=== PATIENT | female | born 1965 | race Caucasian/White ===

== ENCOUNTER → 2017-03-21 | Outpatient (CLI) | payer OTHER | LOC: FIMAGING 12:14 | PROVIDERS: ATTEND Internal Medicine | DX: Z12.31 Encounter for screening mammogram for malignant neoplasm of breast (principal) | CPT/HCPCS: G0202 ==

== ENCOUNTER → 2018-05-08 | Outpatient (CLI) | payer OTHER | LOC: BMCIMAGING 15:07 | PROVIDERS: ATTEND Family Medicine | DX: Z12.31 Encounter for screening mammogram for malignant neoplasm of breast (principal) ==

== ENCOUNTER → 2018-05-15 | Outpatient (CLI) | payer OTHER | LOC: BMCIMAGING 09:54 | PROVIDERS: ATTEND Family Medicine | DX: R92.8 Other abnormal and inconclusive findings on diagnostic imaging of breast (principal) ==

== ENCOUNTER 2018-07-08 15:57 | Observation (INO) | payer OTHER ==
[2018-07-08] MEDS ORDERED: NS 1,000 ML IV ONE (16:35)
--- NOTE | 2018-07-08 16:36 | EDPHY ---
HPI/HX/ROS/PE/MDM Narrative: CHIEF COMPLAINT: "I've been feeling really yucky today" HISTORY OF PRESENT ILLNESS: The patient is a 52 y/o female with a history of anxiety and ocular migraines arriving with her complaining of left arm and leg "tightness" and neck pain onset today as well as fatigue over the last 3 -4 days. Today she says her "left arm and leg are really tight and tense. My neck is tense. I'm nauseous and so tired." She describes the discomfort in her limbs as painful and "almost numb, almost tingling" but not a [id number]-[id number] sensation. Her arm pain extends from her shoulder down the ulnar aspect of her forearm into her wrist. Her leg pain extends into her calf and is not associated with swelling. She took Advil for pain this morning and later lorazepam with some improvement. She mentions she had a few ocular migraines over the last few weeks, most recently 2 days ago. She spoke with her PCP and was advised to wear her prescription glasses. She describes typical "kaleidoscope" visual symptoms lasting 15-20 minutes without a headache, speech difficulty, diplopia, weakness, or paresthesias. She has experienced neck pain recently and saw a massage therapist a few days ago for this. She denies any chiropractic manipulations. She did get a flu vaccination this season. No history of diabetes, hypertension, hypercholesterolemia, paresthesias. No fever, chills, chest pain, shortness of breath, palpitations, vomiting, diarrhea, urinary complaints, headache, lightheadedness, balance problems, recent trauma, recent illness, leg swelling. REVIEW OF SYSTEMS: Aside from elements discussed in the HPI, a comprehensive 10-point review of systems was reviewed and is negative. PAST MEDICAL HISTORY: Anxiety; ocular migraines SOCIAL HISTORY: Nonsmoker, no marijuana use, no illicit drug use, occasional alcohol use. at bedside. VITAL SIGNS: Reviewed by me GENERAL: Well-developed, well-nourished, resting comfortably in no respiratory distress. HEENT: Atraumatic. Eyes: No icterus, no injection. Mouth: moist mucous membranes. No erythema or lesions. Neck: supple with no adenopathy. Bilateral mild paraspinous tenderness. LUNGS: Clear to auscultation bilaterally, no wheezes, rhonchi or rales. CARDIAC: Regular rate and rhythm, no rubs, murmurs or gallops. ABDOMEN: Soft, nontender, nondistended, bowel sounds normal. BACK: No CVA tenderness. EXTREMITIES: No trauma. No edema. Range of motion is normal throughout. NEURO: Alert and oriented, grossly nonfocal. Normal sxfvdr-[id number]-pbig and heel-to -butts bilaterally. Nonfocal cranial nerves. SKIN: Warm and dry, no rash. PSYCHIATRIC: Normal mentation, no agitation. Portions of this note were transcribed by a medical registrar. I personally performed a history, physical exam, medical decision making, and confirmed accuracy of information the transcribed note. ED Course: This is a 52 y/o female who presents with vague left arm, left leg, and neck "tightness" onset this morning and fatigue over the last 3-4 days. She does report recent ocular migraine symptoms as well, but not today. She has a completely normal neurologic exam. She is afebrile. IV established. Labs drawn. EKG ordered. 1L IV NS administered. The 12 lead EKG was interpreted by myself. Sinus mechanism, borderline T wave abnormalities with diffuse flattening new from EKG in 2013. See hard copy and/ or "tracemaster" electronic copy for interpretation. POC troponin 0.00. 1810: Reassessed patient. She is feeling much worse now and has developed chest pain radiating into her left arm. She is quite anxious and worried about going home. She tells me she had a stress test and possibly echocardiogram a few years ago for chest pain that was normal. Plan for repeat EKG and likely admission. Chest x-ray ordered. 324mg PO aspirin and 1mg IV Lorazepam ordered. Chest x-ray: negative, no widening of the mediastinum. The 12 lead EKG was interpreted by myself. Sinus mechanism, T waves are now inverted in III, V3, V4, V5, V6. Mild ST depression V4 and aTF. See hard copy and/or "tracemaster" electronic copy for interpretation. Spoke with hospitalist service. Dr. Mae accepts admission. Repeated POC troponin is 0.00. MDM: After history and physical examination, the differential for patient presenting complaints was considered, including but not limited to, myocardial ischemia, acute coronary syndrome, pulmonary embolus, neurologic causes, electrolyte abnormalities, anxiety, pleural inflammation and pulmonary infectious causes. - Data Points Imaging Results: Imaging Impressions Chest X-Ray 07/08/18 18:20 Impression: Normal. Imaging: I viewed and interpreted images myself Laboratory Results: Laboratory Results 07/08/18 16:37 07/08/18 16:37 07/08/18 07/08/18 07/08/18 16:43 16:37 16:37 WBC RBC Hgb Hct MCV MCH MCHC RDW Plt Count MPV Neut % (Auto) Lymph % (Auto) Simpson % (Auto) Eos % (Auto) Baso % (Auto) Nucleat RBC Rel Count Absolute Neuts (auto) Absolute Lymphs (auto) Absolute Monos (auto) Absolute Eos (auto) Absolute Basos (auto) Absolute Nucleated RBC Immature Gran % Immature Gran # D-Dimer < 0.27 ug/mLFEU ug/mLFEU (0.00-0.50) Sodium 133 mEq/L L mEq/L (135-145) Potassium 3.9 mEq/L mEq/L (3.5-5.2) Chloride 102 mEq/L mEq/L (97-110) Carbon Dioxide 22 mEq/l mEq/l (22-31) Anion Gap 9 mEq/L mEq/L (6-14) BUN 12 mg/dL mg/dL (7-23) Creatinine 0.7 mg/dL mg/dL (0.6-1.0) Estimated GFR > 60 Glucose 107 mg/dL H mg/dL (70-100) Calcium 8.9 mg/dL mg/dL (8.5-10.4) Total Bilirubin 0.4 mg/dL mg/dL (0.1-1.4) Conjugated Bilirubin 0.1 mg/dL mg/dL (0.0-0.5) Unconjugated Bilirubin 0.3 mg/dL mg/dL (0.0-1.1) AST 20 IU/L IU/L (14-46) ALT 29 IU/L IU/L (9-52) Alkaline Phosphatase 80 IU/L IU/L (38-126) POC Troponin I Total Protein 6.8 g/dL g/dL (6.3-8.2) Albumin 3.9 g/dL g/dL (3.5-5.0) Urine Color PALE YELLOW Urine Appearance CLEAR Urine pH 5.0 (5.0-7.5) Ur Specific Beeler 1.010 (1.002-1.030) Urine Protein NEGATIVE (NEGATIVE) Urine Ketones NEGATIVE (NEGATIVE) Urine Blood 2+ H (NEGATIVE) Urine Nitrate NEGATIVE (NEGATIVE) Urine Bilirubin NEGATIVE (NEGATIVE) Urine Urobilinogen NEGATIVE EU EU (0.2-1.0) Ur Leukocyte Esterase NEGATIVE (NEGATIVE) Urine RBC 1-3 /hpf /hpf (0-3) Urine WBC 0-1 /hpf /hpf (0-3) Ur Epithelial Cells TRACE /lpf /lpf (NONE-1+) Urine Bacteria 1+ /hpf H /hpf (NONE SEEN) Urine Mucus TRACE /lpf /lpf (NONE-1+) Urine Glucose NEGATIVE (NEGATIVE) 07/08/18 07/08/18 16:37 16:26 WBC 7.16 10^3/uL 10^3/uL (3.80-9.50) RBC 4.02 10^6/uL L 10^6/uL (4.18-5.33) Hgb 12.9 g/dL g/dL (12.6-16.3) Hct 36.7 % L % (38.0-47.0) MCV 91.3 fL fL (81.5-99.8) MCH 32.1 pg pg (27.9-34.1) MCHC 35.1 g/dL g/dL (32.4-36.7) RDW 13.1 % % (11.5-15.2) Plt Count 247 10^3/uL 10^3/uL (150-400) MPV 10.2 fL fL (8.7-11.7) Neut % (Auto) 71.1 % % (39.3-74.2) Lymph % (Auto) 19.8 % % (15.0-45.0) Simpson % (Auto) 7.5 % % (4.5-13.0) Eos % (Auto) 0.7 % % (0.6-7.6) Baso % (Auto) 0.8 % % (0.3-1.7) Nucleat RBC Rel Count 0.0 % % (0.0-0.2) Absolute Neuts (auto) 5.08 10^3/uL 10^3/uL (1.70-6.50) Absolute Lymphs (auto) 1.42 10^3/uL 10^3/uL (1.00-3.00) Absolute Monos (auto) 0.54 10^3/uL 10^3/uL (0.30-0.80) Absolute Eos (auto) 0.05 10^3/uL 10^3/uL (0.03-0.40) Absolute Basos (auto) 0.06 10^3/uL 10^3/uL (0.02-0.10) Absolute Nucleated RBC 0.00 10^3/uL 10^3/uL (0-0.01) Immature Gran % 0.1 % % (0.0-1.1) Immature Gran # 0.01 10^3/uL 10^3/uL (0.00-0.10) D-Dimer Sodium Potassium Chloride Carbon Dioxide Anion Gap BUN Creatinine Estimated GFR Glucose Calcium Total Bilirubin Conjugated Bilirubin Unconjugated Bilirubin AST ALT Alkaline Phosphatase POC Troponin I 0.00 ng/mL ng/mL (0.00-0.08) Total Protein Albumin Urine Color Urine Appearance Urine pH Ur Specific Beeler Urine Protein Urine Ketones Urine Blood Urine Nitrate Urine Bilirubin Urine Urobilinogen Ur Leukocyte Esterase Urine RBC Urine WBC Ur Epithelial Cells Urine Bacteria Urine Mucus Urine Glucose Medications Given: Discontinued Medications Aspirin (Aspirin) 324 mg PO EDNOW ONE Stop: 07/08/18 18:21 Last Admin: 07/08/18 18:44 Dose: 324 mg Sodium Chloride (Ns) 1,000 mls @ 0 mls/hr IV ONCE ONE; Wide Open PRN Reason: Protocol Stop: 07/08/18 16:36 Last Admin: 07/08/18 16:44 Dose: 1,000 mls Lorazepam (Ativan Injection) 1 mg IVP EDNOW ONE Stop: 07/08/18 18:21 Last Admin: 18 18:48 Dose: 1 mg Point of Care Test Results: Chemistry 07/08/18 16:26 POC Troponin I 0.00 ng/mL ng/mL (0.00-0.08) General Time Seen by Provider: 07/08/18 16:11 Initial Vital Signs: Initial Vital Signs Temperature (C) 36.7 C 07/08/18 15:59 Heart Rate 76 07/08/18 15:59 Respiratory Rate 16 07/08/18 15:59 Blood Pressure 139/75 H 07/08/18 15:59 O2 Sat (%) 97 07/08/18 15:59 O2 Delivery Mode Room Air Allergies/Adverse Reactions: codeine Allergy (Verified 07/08/18 15:58) Home Medications: Medication Instructions Recorded NK [No Known Home Meds] 07/08/18 Departure - Departure Disposition: [facility] Inpatient Acute Clinical Impression: Left arm pain, Left leg pain, Abnormal EKG Chest pain Qualifiers: Chest pain type: other chest pain Qualified Code(s): R07.89 - Other chest pain Condition: Good Report Scribed for: Janiya Markham Report Scribed by: Liliane Coleman Date of Report: 07/08/18 Time of Report: 16:36
[2018-07-08 16:46] LABS: PLATELET COUNT 247 10^3/uL (150-400)
[2018-07-08] MEDS ORDERED: LORazepam 2 MG/ML INJ IVP ONE (18:20)
[2018-07-08] MEDS ORDERED: ASPIRIN 81 MG CHEWABLE TAB PO ONE (18:20)
[2018-07-08] MEDS ORDERED: ONDANSETRON 4 MG/2 ML VIAL IVP PRN (20:07)
[2018-07-08] MEDS ORDERED: ACETAMINOPHEN 325 MG TAB PO PRN (20:07)
--- NOTE | 2018-07-08 20:52 | GHP ---
DATE OF ADMISSION: 07/08/2018 CHIEF COMPLAINT: Chest pain. HISTORY: The patient is a 52-year-old female, who developed left arm and left leg tightness at about 1 o'clock this afternoon. She did not feel great and was very fatigued when she woke up today with some nausea. Then she developed this significant left arm tightness that started in her arm but then radiated into her chest, and she is now having chest tightness 3/10. The chest tightness comes and goes in waves. There is also some neck tightness. It is nonpleuritic and she denies any shortness o f breath. In the emergency room, her 1st EKG was relatively unremarkable, but she had an episode of chest pain in the emergency room, and the EKG during her chest pain showed some new anterior T-wave i nversions. She did have a negative stress test 1 year ago at [facility]. She also has a history of ocular migraines that have been increasing in frequency, and she has been h aving them weekly for the last month. Her last ocular migraine was 2 days ago. She describes these as transient visual loss that last about 15 minutes per session. She never has any headache. She re cently got some new glasses and thinks that the strain of the new glasses had been causing the increa sed events. She has increasing posterior neck pain and stiffness and headache. This has all been di agnosed by her primary care doctor. She has never seen a neurologist and never had an MRI. PAST MEDICAL HISTORY: 1. Ocular migraine. 2. Anxiety. MEDICATIONS: Please see computerized record for full detailed list. ALLERGIES: To codeine. SOCIAL HISTORY: She quit smoking in 1990. Smoked for 5 years prior to that. She drinks wine social [email or web address]. She lives with her . She works at the [employer]. REVIEW OF SYSTEMS: Complete review of systems obtained. Review of systems negative regarding consti tutional, HEENT, GI, pulmonary, cardiovascular, , hematologic, musculoskeletal, endocrine, psych, e xcept for positives and negatives as in HPI. FAMILY HISTORY: Grandfather had an KS at an unknown age. Grandmother of asbestosis complicatio ns. Her mother is still alive in her early 70s. She does not know anything about her father. PHYSICAL EXAMINATION: GENERAL: Well-developed, well-nourished female, in no acute distress. VITAL SIGNS: Temperature is 36.7, pulse 70, blood pressure 136/72, sating 98% on room air. EYE: Normal c onjunctiva. Pupils equal, round, and react to light. ENT: Normal ears, nose. Hearing intact. Nor mal lips and teeth. Oropharynx moist. NECK: Trachea midline. No thyromegaly. CHEST: Normal resp iratory effort. LUNGS: Clear to auscultation bilaterally. CARDIOVASCULAR: Regular rhythm. No mur mur. No lower extremity edema. ABDOMEN: Soft, nontender. No hepatosplenomegaly. SKIN: Warm, dry , intact without rash. MUSCULOSKELETAL: No cyanosis or clubbing. Strength 5/5 upper and lower extr emities. NEUROLOGIC: Cranial nerves intact, normal sensation to light touch. PSYCH: Alert and brent ented x3. Normal affect. Normal judgment and insight. Normal memory. LABORATORY DATA: White count 7.16, hematocrit 36.7, platelets 247. Sodium 133, potassium 3.9, chlor josué 102, bicarb 22, BUN 12, creatinine 0.7, glucose 107. LFTs are negative. Troponins negative x2. D-dimer is negative. Urinalysis is negative. IMAGING DATA: Chest x-ray is negative. TEST DATA: EKG reviewed by me. My personal interpretation is normal sinus rhythm with some diffuse T-wave flattening. Second EKG done during the chest pain episode does show some V3 through V6 T-wave inversions that are new. ASSESSMENT/PLAN: 1. Chest pain. Her heart score is 2 based on 1 point for EKG changes and 1 point for age. Emergenc y room had concerns regarding her EKG changes that were new during her chest pain episode in the [facility] room. Despite her low heart score, shared decision making with the ER doctor and physician did result in a decision for obs admission for closer overnight observation and stress test tomorrow. S he denies any issues with exercising on a treadmill. She does not have any EKG criteria that would e xclude her from EKG interpretation. I will therefore order a standard exercise treadmill test for to echo morning. 2. Hyperlipidemia. She is not currently on any medications. We will check a lipid panel in the [facility]. 3. Ocular migraines. The frequency of these has been increasing and she is now having weekly events . She is also having increased headache and neck pain. She describes these as episodes of transient visual field deficits. She has never previously seen a neurologist, which I would consider. Could also consider a calcium channel aviva for prevention. I also wonder if the EKG change we saw with her chest pain episode may also be a coronary vasospasm in a similar phenomenon that would also benef it from a calcium channel aviva. 4. Left upper extremity and left lower extremity pain. Interestingly, her left lower extremity deve loped new onset pain along with the left upper extremity, which would be atypical for cardiac. Given her increased cervical neck pain recently, could consider an MRI of the cervical spine as an outpati ent if this pain persists. CODE STATUS: Full. ADMISSION STATUS: Will admit to observation. Reevaluate tomorrow for ongoing need for hospitalizati on. DVT PROPHYLAXIS: She is low risk. /[id number]/MODL
--- NOTE | 2018-07-08 23:40 | CPEKG ---
Test Reason : OPEN Blood Pressure : / mmHG Vent. Rate : 078 BPM Atrial Rate : 077 BPM P-R Int : 128 ms QRS Dur : 071 ms QT Int : 382 ms P-R-T Axes : 078 076 021 degrees QTc Int : 436 ms Sinus rhythm Probable left atrial enlargement Borderline T wave abnormalities changed from prior ekg Confirmed by Janiya Markham ([id number]) on 07/08/2018 11:40:12 PM Referred By: Confirmed By:Janiya Markham
--- NOTE | 2018-07-08 23:40 | CPEKG ---
Test Reason : OPEN Blood Pressure : / mmHG Vent. Rate : 087 BPM Atrial Rate : 087 BPM P-R Int : 136 ms QRS Dur : 070 ms QT Int : 343 ms P-R-T Axes : 076 075 -08 degrees QTc Int : 413 ms Sinus rhythm Probable left atrial enlargement Nonspecific T abnormalities, diffuse leads --NEW changes from prior Confirmed by Janiya Markham ([id number]) on 07/08/2018 11:40:32 PM Referred By: Confirmed By:Janiya Markham
--- NOTE | 2018-07-09 05:27 | CPEKG ---
Test Reason : OPEN Blood Pressure : / mmHG Vent. Rate : 077 BPM Atrial Rate : 077 BPM P-R Int : 137 ms QRS Dur : 074 ms QT Int : 396 ms P-R-T Axes : 077 069 031 degrees QTc Int : 449 ms Sinus rhythm Confirmed by Adilson Ramsey ([id number]) on 07/09/2018 5:26:26 AM Referred By: Confirmed By:Adilson Ramsey
[2018-07-09] MEDS ORDERED: ASPIRIN 81 MG CHEWABLE TAB PO SCH (09:00)
[2018-07-09] MEDS ORDERED: REGADENOSON 0.4 MG/5 ML SYR IVP ONE (12:08)
--- NOTE | 2018-07-09 12:44 | PDCARST ---
CAR Stress Test Results Type of Stress Test: Nuclear TM stress test Indication: cp Description of Procedure: After informed consent was obtained, pt was exercised according to Luis Protocol. Monitoring was performed with standard stress equipment tester electrode placement. Vital signs were monitored according to protocol throughout the procedure. STRESS EKG AND HEMODYNAMIC DATA. Exercise time: 8: 09 min. This is equivalent to: 9.1 METS. Resting heart rate: 106 bpm. Resting blood pressure: 110/70 mmHg. Resting O2 saturation: 99 %. Peak heart rate: 183 bpm. This is 109 % of age predicted maximum heart rate response. Peak blood pressure: 140/70 mmHg. Exercise O2: 96 %. Arrhythmias : None. Reason for termination: The test was stopped due to maximal effort . Symptoms: The patient experienced no typical symptoms of angina during stress or recovery. STRESS TEST ANALYSIS. Baseline ECG: SR with downsloping STD. Stress ECG: ST with downsloping STD. exercise induced ischemic ECG changes: Equivocal. Rhythm: No arrhythmias noted during exercise and recovery. Blood pressure: Normal blood pressure response to exercise. Exercise tolerance: The patient has normal exercise tolerance adjusted for age and gender. Symptoms: No exercise induced symptoms. Impression: Stress ECG is equivocal for ischemia due to baseline ECG abnormalities. Conclusion: Await nuclear images.
[2018-07-09 14:09] VITALS: BP 106/75
--- NOTE | 2018-07-09 14:23 | ASMTCMCOM ---
CM Note CM Note Notes: Patient admitted w chest pain and L sided tightness. Stress test results pending. Patient is normally independent, lives with , and works. No discharge needs anticipated. Case Management available if this changes. Date Signed: 07/09/2018 12:56 PM Electronically Signed By:Faiza Li RN
--- NOTE | 2018-07-09 15:20 | PDDCSUM ---
Discharge Summary Discharge Summary: DISCHARGE DIAGNOSES: * acute left-sided chest pain, ruled out myocardial infarction * no abnormal findings on myocardial perfusion imaging stress tests test * nonspecific T-wave abnormalities on EKGs CONSULTANTS: [facility] PROCEDURES: Lexiscan stress test with myocardial perfusion imaging HOSPITAL COURSE SUMMARY: This patient presented to the hospital with variety of symptoms. The primary symptoms started off as fatigue associated with left arm and left leg ache. As the day went on leading up to her presentations she had onset of left-sided chest discomfort as well. She also has noted that her chronic ocular migraine syndrome has increased lately to occurring about once per week without any headaches or nausea or neurologic symptoms Here she had no signs of heart failure, arrhythmia, or hemodynamic instability. There were no findings to suggest any respiratory infection, no vascular or lung abnormalities on imaging or exam, no hypoxemia or respiratory insufficiency , and no fever or other infection signs. The no specific finding on examination to explain her symptoms. The patient rule out for myocardial infarction. She had and nonspecific T-wave abnormality on EKG and 1 we had her walk on a treadmill this T-wave abnormality became more prominent, though there was no discomfort or EKG abnormalities.. Therefore it was elected to do a Lexiscan myocardial perfusion study which was entirely normal Overall her symptoms are unexplained at this time. Her symptoms did improve quite markedly overnight and she feels much better today. At this point is expected that the symptoms will most likely resolve entirely and not bother her further, however she is aware that if these symptoms recur or if she has other concerning symptoms or problems arise she should have further assessment. She is aware of the small likelihood of false negative findings on the perfusion imaging study. Regarding her migraines these are isolated ocular migraines and as such she does not really need to do anything about them. However she is aware to look at taking possible preventive measures for them, and is aware that she could develop a migraine headache syndrome along with these over time. She knows to seek attention if she has any stroke-like symptoms with these episodes. PENDING TEST RESULTS: None MEDICATION CHANGES: None FOLLOW-UP PLAN: With her primary care physician in 10 14 days Greater than 35 minutes bedside and care coordination time today
--- NOTE | 2018-07-10 06:10 | CPEKG ---
Test Reason : OPEN Blood Pressure : / mmHG Vent. Rate : 082 BPM Atrial Rate : 081 BPM P-R Int : 127 ms QRS Dur : 072 ms QT Int : 383 ms P-R-T Axes : 082 079 055 degrees QTc Int : 448 ms Sinus rhythm Confirmed by Dwain Griffin ([id number]) on 07/10/2018 6:09:57 AM Referred By: Confirmed By:Dwain Griffin
== END 2018-07-09 15:48 | disposition home or self-care (01) ==
LOC: F2W 19:46
PROVIDERS: ADMIT Internal Medicine; ATTEND Internal Medicine
DX: R07.9 Chest pain, unspecified (principal); R93.1 Abnormal findings on diagnostic imaging of heart and coronary circulation; R94.31 Abnormal electrocardiogram [ECG] [EKG]; E86.9 Volume depletion, unspecified; G43.109 Migraine with aura, not intractable, without status migrainosus; F41.9 Anxiety disorder, unspecified; R53.83 Other fatigue; M79.602 Pain in left arm; M79.605 Pain in left leg; M54.2 Cervicalgia; E78.5 Hyperlipidemia, unspecified; Z87.891 Personal history of nicotine dependence; Z82.49 Family history of ischemic heart disease and other diseases of the circulatory system
CPT/HCPCS: 84484-PO; 96374; A9500; G0378; J2060; J2785